=== PATIENT | male | born 1985 | race American Indian/Alaskan Native ===

== ENCOUNTER 2021-08-25 14:36 | Emergency (ER) | payer MEDICAID, OTHER ==
[2021-08-25] MEDS ORDERED: Ketorolac 30 MG/ML SDV IM ONE (15:18)
--- NOTE | 2021-08-25 15:18 | EDM.PDOC ---
ED HPI GENERAL MEDICAL PROBLEM - General Stated Complaint: HEADACHE Time Seen by Provider: 08/25/21 15:13 Source of Information: Reports: Patient History Limitations: Reports: No Limitations - History of Present Illness INITIAL COMMENTS - FREE TEXT/NARRATIVE: pt is here basically asking for refills on his lisinopril , states he is new to this town, moved in 3 weeks ago, has been out of his BP medication and has been noticing HAs lately, he has a GOMES today, describe pressure like pain, denies any radiation of pain or any associated sx, pt has no other medical concerns. - Related Data Allergies Allergy/AdvReac Type Severity Reaction Status Date / Time No Known Allergies Allergy Verified 12/07/16 23:59 Home Meds: Home Meds Levofloxacin [Levaquin] 500 mg PO Q24H #10 tablet 12/08/16 [Rx] Past Medical History - Past Health History Medical/Surgical History: Denies Medical/Surgical History Social & Family History - Caffeine Use Caffeine Use: Reports: Soda ED ROS GENERAL - Review of Systems Review Of Systems: See Below Constitutional: Reports: No Symptoms HEENT: Reports: No Symptoms Respiratory: Reports: No Symptoms Cardiovascular: Reports: No Symptoms GI/Abdominal: Reports: No Symptoms : Reports: No Symptoms Musculoskeletal: Reports: No Symptoms Skin: Reports: No Symptoms Neurological: Reports: Headache. Denies: Seizure, Syncope Psychiatric: Reports: No Symptoms ED EXAM, GENERAL - Physical Exam Exam: See Below Exam Limited By: No Limitations General Appearance: Alert, No Apparent Distress Eye Exam: Bilateral Eye: Normal Inspection Nose: Normal Inspection Throat/Mouth: Normal Inspection, Normal Oropharynx Head: Atraumatic, Normocephalic Neck: Normal Inspection, Supple, Non-Tender Respiratory/Chest: No Respiratory Distress, Lungs Clear, Normal Breath Sounds Cardiovascular: Normal Peripheral Pulses, Regular Rate, Rhythm, No Murmur GI/Abdominal: Normal Bowel Sounds, Soft, Non-Tender Back Exam: Normal Inspection Extremities: Normal Inspection, Normal Range of Motion, No Pedal Edema, Normal Capillary Refill Neurological: Alert, Oriented, CN II-XII Intact, Normal Reflexes, No Motor/Sensory Deficits Course - Vital Signs Text/Narrative:: pt has tension type HAs / clinically, his vitals are stable except for elevated DBP , he was given Toradol here and Rx on his usual lisinopril 20 for 30 days, pt to follow and establish care with a local PCP. Departure - Departure Time of Disposition: 15:18 Disposition: Home, Self-Care 01 Clinical Impression: Hypertension - Discharge Information
[2021-08-25 15:21] VITALS: BP 144/114; PULSE 83
== END 2021-08-25 15:50 | disposition home or self-care (01) ==
LOC: FB.ED 14:36
DX: I10 Essential (primary) hypertension (principal)
CPT/HCPCS: 96372; 99283; J1885